=== PATIENT | male | born 1980 | race Caucasian/White ===

== ENCOUNTER 2022-07-24 16:34 | Observation (INO) | payer OTHER ==
[2022-07-24] MEDS ORDERED: DIPH,PERTUS(ACELL)TETVAC-LF 0.5 ML VIAL IM ONE (16:50)
[2022-07-24] MEDS ORDERED: MORPHINE SULFATE 4 MG/ML SYRINGE IVP STA (16:51)
[2022-07-24 17:12] LABS: Basophils # (A) 0.1 k/uL (0-0.2); Basophils % (A) 1 %; Eosinophils # (A) 0.2 k/uL (0-0.7); Eosinophils % (A) 2 %; HCT 44.7 % (39.0-53.0); HGB 14.9 gm/dL (13.0-17.5); Lymphocytes # (A) 3.4 k/uL (1.0-4.8); Lymphocytes % (A) 34 %; MCH 30.2 pg (25.0-35.0); MCHC 33.4 g/dL (31.0-37.0); MCV 90.3 fL (80.0-100.0); Mean Platelet Volume 7.9; Monocytes # (A) 0.6 k/uL (0-1.0); Monocytes % (A) 6 %; Neutrophils # (A) 5.6 k/uL (1.3-7.7); Neutrophils % (A) 55 %; Platelet Count 252 k/uL (150-450); RBC 4.95 m/uL (4.30-5.90); RDW 12.1 % (11.5-15.5); WBC 10.1 k/uL (3.8-10.6)
--- NOTE | 2022-07-24 17:20 | CT ---
EXAMINATION: CT ABDOMEN AND PELVIS WITH IV CONTRAST DATE OF EXAMINATION: 2022. COMPARISON: None available. INDICATION: Abnormal after falling from ladder. PROCEDURE: Axial CT of the abdomen and pelvis was performed with contrast and sagittal and coronal reformatted images were performed. CT dose lowering techniques were used, to include: automated expos ure control, adjustment for patient size, and/or use of iterative reconstruction. FINDINGS: LOWER CHEST : The visualized lung bases are clear. There are no pleural or pericardial effusions. ABDOMEN: Liver and Biliary system: Normal. Adrenal glands: Normal. Kidneys and ureters: Normal. Spleen: Normal. Pancreas: Normal. Gallbladder: Normal. Lymph nodes, Peritoneum and mesentery: There is no mesenteric or retroperitoneal lymphadenopathy. Gastrointestinal tract: There are no dilated loops of bowel or free intraperitoneal air. The appe ndix is normal. Aorta/IVC: No aortic aneurysm. IVC normal. Abdominal wall: Normal. PELVIS: Fluid: There is no free fluid in the pelvis. Lymph Nodes: There is no pelvic or inguinal lymphadenopathy.. Urinary bladder: Normal. BONES: There are no osseous destructive lesions.. ADDITIONAL SIGNIFICANT FINDINGS: None. IMPRESSION: No acute process within the abdomen or pelvis.
--- NOTE | 2022-07-24 17:26 | XR ---
EXAMINATION TYPE: XR pelvis AP view DATE OF EXAM: 07/24/2022 COMPARISON: NONE HISTORY: Laceration. Left side pain. Fell off a ladder. TECHNIQUE: Single view FINDINGS: Pelvic ring is intact. Proximal femurs and hip joints are intact. Sacroiliac joints are int act. There is contrast in the urinary bladder and distal right ureter. IMPRESSION: No acute abnormality of the pelvis. No fracture.
[2022-07-24 17:27] LABS: Partial Thromboplastin Time 22.5 sec (22.0-30.0); Prothrombin Time 10.6 sec (9.0-12.0)
[2022-07-24 17:31] LABS: ALT 26 U/L (4-49); AST 29 U/L (17-59); African American GFR (CKD) >90 (>60 ml/min/1.73 sqM); Albumin 4.6 g/dL (3.5-5.0); Alcohol <10 mg/dL; Alkaline Phosphatase 63 U/L (38-126); Anion Gap 11 mmol/L; Blood Urea Nitrogen 17 mg/dL (9-20); Calcium 9.1 mg/dL (8.4-10.2); Carbon Dioxide 24 mmol/L (22-30); Chloride 102 mmol/L (98-107); Glucose 159 mg/dL (74-99); Non-African American GFR(CKD) >90 (>60 ml/min/1.73 sqM); Potassium 3.7 mmol/L (3.5-5.1); Sodium 137 mmol/L (137-145); Total Bilirubin 0.6 mg/dL (0.2-1.3); Total Protein 7.2 g/dL (6.3-8.2)
--- NOTE | 2022-07-24 18:21 | ED ---
General Adult HPI - General Chief complaint: Trauma Stated complaint: Fall from Ladder, Leg Lac Time Seen by Provider: 07/24/22 16:50 Source: patient Mode of arrival: wheelchair Limitations: no limitations - History of Present Illness Initial comments: This is a 41-year-old male with no past medical history presented to the emergency department after a fall and having a fencepost impale him. The patient stated that he was on a ladder when he was holding onto a roof and the ladder slipped, him falling approximately 8 feet however landing on the top of a fence post impaling him on the buttock. The patient stated this happened 20 minutes prior to arrival. The patient did not hit his head and did not lose consciousness. The patient had significant pain to the animal bleeding noted. The patient was able to inflate into the emergency department. The patient denied any other trauma. The patient denied knowing his last tetanus booster. Severity scale (1-10): 2 - Related Data Home Medications Medication Instructions Recorded Confirmed No Known Home Medications 07/24/22 07/24/22 Allergies Allergy/AdvReac Type Severity Reaction Status Date / Time No Known Allergies Allergy Verified 07/24/22 19:17 Review of Systems ROS Statement: Those systems with pertinent positive or pertinent negative responses have been documented in the HPI. ROS Other: All systems not noted in ROS Statement are negative. Past Medical History History of Any Multi-Drug Resistant Organisms: None Reported Past Psychological History: No Psychological Hx Reported Past Alcohol Use History: None Reported Past Drug Use History: None Reported General Exam Limitations: no limitations General appearance: alert, in distress (In mild distress secondary to trauma) Head exam: Present: atraumatic, normocephalic, normal inspection Eye exam: Present: normal appearance, PERRL Pupils: Present: normal accommodation ENT exam: Present: normal exam, normal oropharynx, mucous membranes moist Neck exam: Present: normal inspection, full ROM Respiratory exam: Present: normal lung sounds bilaterally Cardiovascular Exam: Present: regular rate, normal rhythm, normal heart sounds GI/Abdominal exam: Present: soft, normal bowel sounds Rectal exam: Present: normal inspection, normal rectal tone, other (Large U- shaped, 8 cm laceration noted to the left anterior aspect of the back just lateral to the rectum and anal verge) exam: Present: normal inspection External exam: Present: normal external exam Extremities exam: Present: normal inspection, full ROM Back exam: Present: normal inspection, full ROM Neurological exam: Present: alert, oriented X3, CN II-XII intact Psychiatric exam: Present: normal affect, normal mood Skin exam: Present: warm, dry Course Vital Signs 07/24/22 07/24/22 07/24/22 16:38 17:59 18:25 Temperature 97 F L 97.7 F 97.7 F Pulse Rate 86 Pulse Rate [ 93 87 Pulse Oximetery ] Respiratory 24 14 16 Rate Blood Pressure 119/70 Blood Pressure 122/65 122/65 [Right Arm] O2 Sat by Pulse 96 94 L 98 Oximetry 07/24/22 19:00 Temperature Pulse Rate Pulse Rate [ 79 Pulse Oximetery ] Respiratory 20 Rate Blood Pressure Blood Pressure 118/61 [Right Arm] O2 Sat by Pulse 97 Oximetry EKG Findings - EKG Comments: EKG Findings:: An EKG was obtained and was interpreted by myself showing a rate of 81, CO interval of 161, QRS duration 93 and QTC of 400. This EKG showed a normal sinus rhythm with no ST segment elevation or depression noted. Procedures - Laceration Laceration #1 Consent Obtained: verbal consent Indication: laceration Site: other (Buttock) Size (cm): 8 Description: flap Depth: involves muscle layer Sedation/Analgesia: none Anesthetic Used: lidocaine 1% Anesthesia Technique: local infiltration Amount (mls): 8 Pre-repair: wound explored, irrigated extensively, deep structures intact Type of Sutures: nylon Size of Sutures: 3-0 Number of Sutures: 7 Technique: simple, interrupted Complications: other Patient Tolerated Procedure: well Laceration #2 Consent Obtained: verbal consent Indication: laceration Site: other (Buttock) Size (cm): 3 Description: linear Depth: simple, single layer Sedation/Analgesia: none Anesthetic Used: lidocaine 1% Anesthesia Technique: local infiltration Amount (mls): 2 Pre-repair: wound explored, irrigated extensively, deep structures intact Type of Sutures: nylon Size of Sutures: 3-0 Number of Sutures: 3 Technique: simple, interrupted Patient Tolerated Procedure: well Medical Decision Making - Medical Decision Making Was pt. sent in by a medical professional or institution (, PA, NURSE RECEPTIONIST, urgent care, hospital, or skilled nursing...) When possible be specific @ -No Did you speak to anyone other than the patient for history (EMS, parent, family, police, friend...)? What history was obtained from this source @ -No Did you review nursing and triage notes (agree or disagree)? Why? @ -I reviewed and agree with nursing and triage notes Were old charts reviewed (outside hosp., previous admission, EMS record, old EKG, old radiological studies, urgent care reports/EKG's, skilled nursing records)? Report findings @ -No old charts were reviewed Differential Diagnosis (chest pain, altered mental status, abdominal pain women, abdominal pain men, vaginal bleeding, weakness, fever, dyspnea, syncope, headache, dizziness, GI bleed, back pain, seizure, CVA, palpatations, mental health)? @ -Rectal injury, perforation, laceration EKG interpreted by me (3pts min.). @ -As above X-rays interpreted by me (1pt min.). @ -Pelvic x-ray was obtained and was interpreted by myself showing no acute process. CT interpreted by me (1pt min.). @ -CT abdomen and pelvis was obtained and was interpreted by myself showing no acute process. U/S interpreted by me (1pt. min.). @ -None done What testing was considered but not performed or refused? (CT, X-rays, U/S, labs)? Why? @ -None What meds were considered but not given or refused? Why? @ -None Did you discuss the management of the patient with other professionals (pr ofessionals i.e. , PA, NURSE RECEPTIONIST, lab, RT, psych nurse, social sciences professor, headhunter, teacher, life science technical officer, showcase trimmer)? Give summary @ -Yes, trauma surgeon retail commission sales associate, Dr De Luna multiple times, as well as urologist, Dr. Llanes Was smoking cessation discussed for >3mins.? @ -No Was critical care preformed (if so, how long)? @ -Yes, see above Were there social determinants of health that impacted care today? How? (Homelessness, low income, unemployed, alcoholism, drug addiction, transportation, low edu. Level, literacy, decrease access to med. care, group home, rehab)? @ -No Was there de-escalation of care discussed even if they declined (Discuss DNR or withdrawal of care, Hospice)? DNR status @ -No What co-morbidities impacted this encounter? (DM, HTN, Smoking, COPD, CAD, Cancer, CVA, ARF, Chemo, Hep., AIDS, mental health diagnosis, sleep apnea, morbid obesity)? @ -None Was patient admitted / discharged? Hospital course, mention meds given and route, prescriptions, significant lab abnormalities, going to OR and other pertinent info. @ -The patient was seen and evaluated in emergency department. Physical exam, the patient was resting in bed in mild distress secondary to the injury. Vital signs were stable. Laboratory workup as well as CT scans were obtained and were within normal limits. The patient did have tracking towards the scrotum but did have blood in the urine. Because of this, the trauma surgeon was contacted and he did want urology evaluation. The urologist, Dr. Llanes was contacted and recommended a cystourethrogram. Because the patient did require this scan in the setting of a radiologist present, the patient needed to be placed observation. The trauma surgeon on-call did accept the patient for observation and the patient himself was told this plan and was agreeable. The patient received his tetanus booster as well as pain medications and antibiotics. The patient was placed in observation in stable condition to be seen and evaluated by urology and have a cystourethrogram performed. Undiagnosed new problem with uncertain prognosis? @ -No Drug Therapy requiring intensive monitoring for toxicity (Heparin, Nitro, Insulin, Cardizem)? @ -No Were any procedures done? @ -Yes, see above Diagnosis/symptom? @ -Penetrating left buttock wound, rule out urethral injury Acute, or Chronic, or Acute on Chronic? @ -Acute Uncomplicated (without systemic symptoms) or Complicated (systemic symptoms)? @ -Complicated Side effects of treatment? @ -No Exacerbation, Progression, or Severe Exacerbation? @ -No Poses a threat to life or bodily function? How? (Chest pain, USA, NC, pneumonia, PE, COPD, DKA, ARF, appy, cholecystitis, CVA, Diverticulitis, Homicidal, Suicidal, threat to staff... and all critical care pts) @ -Yes, possible urethral injury can lead to permanent damage and organ dysfunction. - Lab Data Result diagrams: 07/24/22 16:53 07/24/22 16:53 Lab Results 07/24/22 07/24/22 07/24/22 Range/Units 16:53 16:53 16:53 WBC 10.1 (3.8-10.6) k/uL RBC 4.95 (4.30-5.90) m/uL Hgb 14.9 (13.0-17.5) gm/dL Hct 44.7 (39.0-53.0) % MCV 90.3 (80.0-100.0) fL MCH 30.2 (25.0-35.0) pg MCHC 33.4 (31.0-37.0) g/dL RDW 12.1 (11.5-15.5) % Plt Count 252 (150-450) k/uL MPV 7.9 Neutrophils % 55 % Lymphocytes % 34 % Monocytes % 6 % Eosinophils % 2 % Basophils % 1 % Neutrophils # 5.6 (1.3-7.7) k/uL Lymphocytes # 3.4 (1.0-4.8) k/uL Monocytes # 0.6 (0-1.0) k/uL Eosinophils # 0.2 (0-0.7) k/uL Basophils # 0.1 (0-0.2) k/uL PT 10.6 (9.0-12.0) sec INR 1.0 (<1.2) APTT 22.5 (22.0-30.0) sec Sodium 137 (137-145) mmol/L Potassium 3.7 (3.5-5.1) mmol/L Chloride 102 (98-107) mmol/L Carbon Dioxide 24 (22-30) mmol/L Anion Gap 11 mmol/L BUN 17 (9-20) mg/dL Creatinine 0.89 (0.66-1.25) mg/dL Est GFR (CKD-EPI)AfAm >90 (>60 ml/min/1.73 sqM) Est GFR (CKD-EPI)NonAf >90 (>60 ml/min/1.73 sqM) Glucose 159 H (74-99) mg/dL Calcium 9.1 (8.4-10.2) mg/dL Total Bilirubin 0.6 (0.2-1.3) mg/dL AST 29 (17-59) U/L ALT 26 (4-49) U/L Alkaline Phosphatase 63 (38-126) U/L Troponin I (0.000-0.034) ng/mL Total Protein 7.2 (6.3-8.2) g/dL Albumin 4.6 (3.5-5.0) g/dL Urine Color Urine Appearance (Clear) Urine pH (5.0-8.0) Ur Specific [place] (1.001-1.035) Urine Protein (Negative) Urine Glucose (UA) (Negative) Urine Ketones (Negative) Urine Blood (Negative) Urine Nitrite (Negative) Urine Bilirubin (Negative) Urine Urobilinogen (<2.0) mg/dL Ur Leukocyte Esterase (Negative) Urine RBC (0-5) /hpf Urine WBC (0-5) /hpf Urine Mucus (None) /hpf Urine Opiates Screen (NotDetected) Ur Oxycodone Screen (NotDetected) Urine Methadone Screen (NotDetected) Ur Propoxyphene Screen (NotDetected) Ur Barbiturates Screen (NotDetected) U Tricyclic Antidepress (NotDetected) Ur Phencyclidine Scrn (NotDetected) Ur Amphetamines Screen (NotDetected) U Methamphetamines Scrn (NotDetected) U Benzodiazepines Scrn (NotDetected) Urine Cocaine Screen (NotDetected) U Marijuana (THC) Screen (NotDetected) Serum Alcohol <10 mg/dL Blood Type Blood Type Confirm Blood Type Recheck Bld Type Recheck Status Antibody Screen Spec Expiration Date 07/24/22 07/24/22 07/24/22 Range/Units 16:53 16:53 17:07 WBC (3.8-10.6) k/uL RBC (4.30-5.90) m/uL Hgb (13.0-17.5) gm/dL Hct (39.0-53.0) % MCV (80.0-100.0) fL MCH (25.0-35.0) pg MCHC (31.0-37.0) g/dL RDW (11.5-15.5) % Plt Count (150-450) k/uL MPV Neutrophils % % Lymphocytes % % Monocytes % % Eosinophils % % Basophils % % Neutrophils # (1.3-7.7) k/uL Lymphocytes # (1.0-4.8) k/uL Monocytes # (0-1.0) k/uL Eosinophils # (0-0.7) k/uL Basophils # (0-0.2) k/uL PT (9.0-12.0) sec INR (<1.2) APTT (22.0-30.0) sec Sodium (137-145) mmol/L Potassium (3.5-5.1) mmol/L Chloride (98-107) mmol/L Carbon Dioxide (22-30) mmol/L Anion Gap mmol/L BUN (9-20) mg/dL Creatinine (0.66-1.25) mg/dL Est GFR (CKD-EPI)AfAm (>60 ml/min/1.73 sqM) Est GFR (CKD-EPI)NonAf (>60 ml/min/1.73 sqM) Glucose (74-99) mg/dL Calcium (8.4-10.2) mg/dL Total Bilirubin (0.2-1.3) mg/dL AST (17-59) U/L ALT (4-49) U/L Alkaline Phosphatase (38-126) U/L Troponin I <0.012 (0.000-0.034) ng/mL Total Protein (6.3-8.2) g/dL Albumin (3.5-5.0) g/dL Urine Color Urine Appearance (Clear) Urine pH (5.0-8.0) Ur Specific [place] (1.001-1.035) Urine Protein (Negative) Urine Glucose (UA) (Negative) Urine Ketones (Negative) Urine Blood (Negative) Urine Nitrite (Negative) Urine Bilirubin (Negative) Urine Urobilinogen (<2.0) mg/dL Ur Leukocyte Esterase (Negative) Urine RBC (0-5) /hpf Urine WBC (0-5) /hpf Urine Mucus (None) /hpf Urine Opiates Screen (NotDetected) Ur Oxycodone Screen (NotDetected) Urine Methadone Screen (NotDetected) Ur Propoxyphene Screen (NotDetected) Ur Barbiturates Screen (NotDetected) U Tricyclic Antidepress (NotDetected) Ur Phencyclidine Scrn (NotDetected) Ur Amphetamines Screen (NotDetected) U Methamphetamines Scrn (NotDetected) U Benzodiazepines Scrn (NotDetected) Urine Cocaine Screen (NotDetected) U Marijuana (THC) Screen (NotDetected) Serum Alcohol mg/dL Blood Type A Negative Blood Type Confirm A Negative Blood Type Recheck No Previous Record Bld Type Recheck Status CABO Indicated Antibody Screen NEGATIVE Spec Expiration Date 07/27/2022 - 235207/24/22 Range/Units 18:23 WBC (3.8-10.6) k/uL RBC (4.30-5.90) m/uL Hgb (13.0-17.5) gm/dL Hct (39.0-53.0) % MCV (80.0-100.0) fL MCH (25.0-35.0) pg MCHC (31.0-37.0) g/dL RDW (11.5-15.5) % Plt Count (150-450) k/uL MPV Neutrophils % % Lymphocytes % % Monocytes % % Eosinophils % % Basophils % % Neutrophils # (1.3-7.7) k/uL Lymphocytes # (1.0-4.8) k/uL Monocytes # (0-1.0) k/uL Eosinophils # (0-0.7) k/uL Basophils # (0-0.2) k/uL PT (9.0-12.0) sec INR (<1.2) APTT (22.0-30.0) sec Sodium (137-145) mmol/L Potassium (3.5-5.1) mmol/L Chloride (98-107) mmol/L Carbon Dioxide (22-30) mmol/L Anion Gap mmol/L BUN (9-20) mg/dL Creatinine (0.66-1.25) mg/dL Est GFR (CKD-EPI)AfAm (>60 ml/min/1.73 sqM) Est GFR (CKD-EPI)NonAf (>60 ml/min/1.73 sqM) Glucose (74-99) mg/dL Calcium (8.4-10.2) mg/dL Total Bilirubin (0.2-1.3) mg/dL AST (17-59) U/L ALT (4-49) U/L Alkaline Phosphatase (38-126) U/L Troponin I (0.000-0.034) ng/mL Total Protein (6.3-8.2) g/dL Albumin (3.5-5.0) g/dL Urine Color Yellow Urine Appearance Clear (Clear) Urine pH 6.0 (5.0-8.0) Ur Specific [place] >1.050 H (1.001-1.035) Urine Protein Trace H (Negative) Urine Glucose (UA) Negative (Negative) Urine Ketones Negative (Negative) Urine Blood Small H (Negative) Urine Nitrite Negative (Negative) Urine Bilirubin Negative (Negative) Urine Urobilinogen <2.0 (<2.0) mg/dL Ur Leukocyte Esterase Negative (Negative) Urine RBC 10 H (0-5) /hpf Urine WBC 1 (0-5) /hpf Urine Mucus Few H (None) /hpf Urine Opiates Screen Detected H (NotDetected) Ur Oxycodone Screen Not Detected (NotDetected) Urine Methadone Screen Not Detected (NotDetected) Ur Propoxyphene Screen Not Detected (NotDetected) Ur Barbiturates Screen Not Detected (NotDetected) U Tricyclic Antidepress Not Detected (NotDetected) Ur Phencyclidine Scrn Not Detected (NotDetected) Ur Amphetamines Screen Detected H (NotDetected) U Methamphetamines Scrn Not Detected (NotDetected) U Benzodiazepines Scrn Not Detected (NotDetected) Urine Cocaine Screen Not Detected (NotDetected) U Marijuana (THC) Screen Detected H (NotDetected) Serum Alcohol mg/dL Blood Type Blood Type Confirm Blood Type Recheck Bld Type Recheck Status Antibody Screen Spec Expiration Date Critical Care Time Critical Care Time: Yes Total Critical Care Time: 41 Disposition Clinical Impression: Penetrating wound of soft tissue, Hematuria, Laceration Disposition: ADMITTED IP TO THIS [facility] Condition: Stable Is patient prescribed a controlled substance at d/c from ED?: No Referrals: Merlin Murillo MD [Primary Care Provider] - 1-2 days Time of Disposition: 19:00 Decision to Admit Reason: Admit from EC Decision Date: 07/24/22 Decision Time: 19:00
[2022-07-24 18:35] LABS: Appearance,Urine Clear (Clear); Bilirubin,Urine Negative (Negative); Blood,Urine Small (Negative); Color,Urine Yellow; Glucose,Urine (UA) Negative (Negative); Ketones,Urine Negative (Negative); Leukocyte Esterase,Urine Negative (Negative); Mucus,Urine Few /hpf; Nitrite,Urine Negative (Negative); Protein,Urine Trace (Negative); RBC,Urine 10 /hpf (0-5); Urobilinogen,Urine <2.0 mg/dL (<2.0); WBC,Urine 1 /hpf (0-5)
[2022-07-24 18:36] LABS: Specific Gravity,Urine >1.050 (1.001-1.035)
[2022-07-24 19:01] LABS: Amphetamine Screen,Urine Detected (NotDetected); Barbiturate Screen,Urine Not Detected (NotDetected); Benzodiazepines Screen,Urine Not Detected (NotDetected); Cocaine Screen,Urine Not Detected (NotDetected); Methadone Screen, Urine Not Detected (NotDetected); Opiate Screen,Urine Detected (NotDetected); Oxycodone Screen, Urine Not Detected (NotDetected); Phencyclidine Screen,Urine Not Detected (NotDetected); Tricyclic Antidepressant,Urine Not Detected (NotDetected); Urn Cannabinoid Scrn Detected (NotDetected)
[2022-07-24] MEDS ORDERED: NALOXONE 0.4 MG/ML 1 ML VIAL IV PRN (19:02)
[2022-07-24] MEDS: MORPHINE SULFATE 4 MG/ML SYRINGE IV PRN ×2 (19:18→23:21)
[2022-07-24] MEDS ORDERED: AMPICILLIN-SULBACTAM 3 GM in SODIUM CHLORIDE 0.9% 100 ML IVPB STA (20:07)
[2022-07-24] MEDS ORDERED: ALPRAZolam 0.25 MG TAB PO PRN (21:32)
[2022-07-25] MEDS: MORPHINE SULFATE 4 MG/ML SYRINGE IV PRN (08:01)
--- NOTE | 2022-07-25 08:45 | P.GSCN ---
History of Present Illness Consult date: 07/25/22 History of present illness: The patient is 41. Yesterday he fell off a roof and was impaled in the perineum on the left side from a fence post. He was brought to the emergency room and evaluated. Her asked to see because of some hematuria. When they contacted me last night I recommended a cystourethrogram due to the location of injury. One was not done. A CT scan was performed with contrast and there is no urologic injury noted. The patient has voided without difficulty or hematuria since the incident 18 hours ago. The patient has no previous urologic issues. Review of Systems All systems: negative - Constitutional Denies fever, Denies weight loss - EENT Eyes: denies blurred vision Ears, nose, mouth and throat: Denies dysphagia - Cardiovascular Denies chest pain, Denies shortness of breath - Respiratory Denies cough, Denies 7 - Gastrointestinal Reports as per HPI - Genitourinary Denies dysuria, Denies hematuria - Integumentary Denies rash, Denies unusual bruising - Neurological Denies headaches, Denies syncope - Hematologic/Lymphatic Denies easy bleeding, Denies easy bruising Past Medical History History of Any Multi-Drug Resistant Organisms: None Reported Past Psychological History: No Psychological Hx Reported Smoking Status: Former smoker Past Alcohol Use History: None Reported Past Drug Use History: None Reported Medications and Allergies Home Medications Medication Instructions Recorded Confirmed Type No Known Home Medications 07/24/22 07/24/22 History Allergies Allergy/AdvReac Type Severity Reaction Status Date / Time No Known Allergies Allergy Verified 07/24/22 19:17 Surgical - Exam Vital Signs Temp Pulse Resp BP Pulse Ox 97 F L 86 24 119/70 96 07/24/22 16:38 07/24/22 16:38 07/24/22 16:38 07/24/22 16:38 07/24/22 16:38 - General well developed, well nourished, no distress - Eyes normal ocular movement, no icteric - ENT no hearing loss, no congestion - Neck no masses, trachea midline - Respiratory normal respiratory effort, clear to auscultation - Abdomen Abdomen: soft, non tender, no guarding, no rigid, no rebound - Genitourinary The penis is circumcised and normal. The testes are unremarkable. The urethra is palpably unremarkable. There is a laceration in the left perineum towards the buttocks that is somewhat swollen and tender. No significant ecchymosis is noted. There is no blood at the urethral meatus. - Integumentary no rash, no abnormal pigmentation - Neurologic no disoriented, no combative - Psychiatric oriented to time, oriented to person, oriented to place, speech is normal, memory intact Results - Labs 07/24/22 16:53 07/24/22 16:53 Abnormal Lab Results - Last 24 Hours (Table) 07/24/22 07/24/22 Range/Units 16:53 18:23 Glucose 159 H (74-99) mg/dL Ur Specific [place] >1.050 H (1.001-1.035) Urine Protein Trace H (Negative) Urine Blood Small H (Negative) Urine RBC 10 H (0-5) /hpf Urine Mucus Few H (None) /hpf Urine Opiates Screen Detected H (NotDetected) Ur Amphetamines Screen Detected H (NotDetected) U Marijuana (THC) Screen Detected H (NotDetected) Diabetes panel 07/24/22 Range/Units 16:53 Sodium 137 (137-145) mmol/L Potassium 3.7 (3.5-5.1) mmol/L Chloride 102 (98-107) mmol/L Carbon Dioxide 24 (22-30) mmol/L BUN 17 (9-20) mg/dL Creatinine 0.89 (0.66-1.25) mg/dL Glucose 159 H (74-99) mg/dL Calcium 9.1 (8.4-10.2) mg/dL AST 29 (17-59) U/L ALT 26 (4-49) U/L Alkaline Phosphatase 63 (38-126) U/L Total Protein 7.2 (6.3-8.2) g/dL Albumin 4.6 (3.5-5.0) g/dL Calcium panel 07/24/22 Range/Units 16:53 Calcium 9.1 (8.4-10.2) mg/dL Albumin 4.6 (3.5-5.0) g/dL Pituitary panel 07/24/22 Range/Units 16:53 Sodium 137 (137-145) mmol/L Potassium 3.7 (3.5-5.1) mmol/L Chloride 102 (98-107) mmol/L Carbon Dioxide 24 (22-30) mmol/L BUN 17 (9-20) mg/dL Creatinine 0.89 (0.66-1.25) mg/dL Glucose 159 H (74-99) mg/dL Calcium 9.1 (8.4-10.2) mg/dL Adrenal panel 07/24/22 Range/Units 16:53 Sodium 137 (137-145) mmol/L Potassium 3.7 (3.5-5.1) mmol/L Chloride 102 (98-107) mmol/L Carbon Dioxide 24 (22-30) mmol/L BUN 17 (9-20) mg/dL Creatinine 0.89 (0.66-1.25) mg/dL Glucose 159 H (74-99) mg/dL Calcium 9.1 (8.4-10.2) mg/dL Total Bilirubin 0.6 (0.2-1.3) mg/dL AST 29 (17-59) U/L ALT 26 (4-49) U/L Alkaline Phosphatase 63 (38-126) U/L Total Protein 7.2 (6.3-8.2) g/dL Albumin 4.6 (3.5-5.0) g/dL - Imaging CT scan - abdomen: report reviewed, image reviewed CT scan - pelvis: report reviewed, image reviewed Assessment and Plan Assessment: Impression: Perineal injury. Microscopic hematuria minimal probably secondary to fall. No obvious urologic injury. Recommendations: No cystourethrogram was done but the CT scan with contrast was normal. He has voided for 18 hours without blood. I do not think further urologic intervention is required. This has been discussed with the patient.
[2022-07-25 09:38] VITALS: RESP 16
[2022-07-25] MEDS ORDERED: HYDROcodone/APAP 5-325MG 1 EACH TAB PO PRN (10:27)
[2022-07-25 10:57] LABS: Basophils # (A) 0.03 X 10*3/uL (0.00-0.10); Basophils % (A) 0.3 %; Eosinophils # (A) 0.12 X 10*3/uL (0.04-0.35); Eosinophils % (A) 1.1 %; HCT 44.5 % (39.6-50.0); HGB 14.6 g/dL (13.0-17.0); Immature Grans, Automated 0.3 %; Lymphocytes % (A) 16.1 %; MCH 29.4 pg (27.0-32.0); MCHC 32.8 g/dL (32.0-37.0); MCV 89.7 fL (80.0-97.0); Mean Platelet Volume 10.8 fL (9.5-12.2); Monocytes # (A) 1.01 X 10*3/uL (0.20-1.00); Monocytes % (A) 9.6 %; NRBC Per 100 WBC 0 /100 WBCS (0.0-0.0); Neutrophils # (A) 7.65 X 10*3/uL (1.80-7.70); Neutrophils % (A) 72.6 %; Platelet Count 219 X 10*3/uL (140-440); RBC 4.96 X 10*6/uL (4.40-5.60); RDW 12.5 % (11.5-14.5); WBC 10.54 X 10*3/uL (4.50-10.00)
[2022-07-25 11:08] LABS: African American GFR (CKD) 135.9 (60.0-200.0); Anion Gap 13.4 mmol/L (10.00-18.00); Blood Urea Nitrogen 10.5 mg/dL (9.0-27.0); Calcium 8.9 mg/dL (8.7-10.3); Carbon Dioxide 16.6 mmol/L (20.0-27.5); Non-African American GFR(CKD) 117.2 (60.0-200.0)
--- NOTE | 2022-07-25 12:01 | P.GSHP ---
History of Present Illness H&P Date: 07/25/22 CHIEF COMPLAINT: Fall HISTORY OF PRESENT ILLNESS: This is a 41-year-old male who presented to the hospital after a fall from a 6 foot ladder landing on a metal stents post. The fence post. Old the perineum on the left side. Patient did require sutures in the ER. There had been some hematuria reported by nursing staff. This has apparently resolved. Patient evaluated by urology. Per urology no evidence of any urological injury noted on CT. Patient has not noted any hematuria. He reports having flatus. Denies any nausea or vomiting. He denies any abdominal pain. His pain is tolerable. He had a computed tomography scan abdomen and pelvis with no acute process. Patient did receive a tetanus shot in the ER. He denies any fever, chills or sweats. Patient denies any loss of consciousness or hitting his head. PAST MEDICAL HISTORY: See below PAST SURGICAL HISTORY: See below MEDICATIONS: See below ALLERGIES: See below SOCIAL HISTORY: No illicit drug use. REVIEW OF SYSTEMS: CONSTITUTIONAL: Denies fever or chills. HEENT: Denies blurred vision, vision changes, or eye pain. Denies hemoptysis CARDIOVASCULAR: Denies chest pain or pressure. RESPIRATORY: No shortness of breath. GASTROINTESTINAL: See HPI for pertinent findings HEMATOLOGIC: Denies bleeding disorders. GENITOURINARY: Denies any blood in urine or increased urinary frequency. SKIN: Denies pruitis. Denies rash. PHYSICAL EXAM: VITAL SIGNS: Reviewed GENERAL: Well-developed in no acute distress. HEENT: No sclera icterus. Extraocular movements grossly intact. Moist buccal mucosa. Head is atraumatic, normocephalic. No nasal drainage. ABDOMEN: Soft. Nondistended. Nontender NEUROLOGIC: Alert and oriented. Cranial nerves II through XII grossly intact. : Left side perineal area is tender and swollen with 2 lacerations that have been sutured. LABORATORY DATA: WBC 10.5 Hgb 14.6 plt 219 Na 137 k 4.0 cr 0.7 LFTs normal Urinalysis small amount of blood Urine drug screen positive for opiates and amphetamines and marijuana IMAGING: Computed tomography scan abdomen and pelvis no acute process within the abdomen or pelvis Abdominal x-ray no acute abnormality in the pelvis. No fracture. ASSESSMENT: 1. Fall with trauma to left perineal area 2. Penetrating injury to left perineal area by fence post. Status post sutures in ER 3. Hematuria noted in the ER. Patient evaluated by urology. No obvious urologic injury and they cancelled the cystourethogram PLAN: -Patient scheduled for flex sigmoidoscopy today with Dr. De Luna -Keep patient nothing by mouth -Meridian added for pain control -Continue antibiotics -Continue supportive care Physician Psychopaedic Nurse note has been reviewed by physician. Signing provider agrees with the documented findings, assessment, and plan of care. As above. I have personally seen and examined the patient, reviewed the FINANCIAL BUSINESS ANALYST /PAs history, exam and MDM and agree with the assessment and plan as written. Based on total visit time, I have performed more than 50% of the visit. As above: Patient with impalement injury yesterday evening. Spoke with ER at length last night. Likelihood of rectal injury very low however since the patient stayed overnight for urologic assessment Will proceed with flexible sigmoidoscopy today prior to discharge. Past Medical History History of Any Multi-Drug Resistant Organisms: None Reported Past Psychological History: No Psychological Hx Reported Smoking Status: Former smoker Past Alcohol Use History: None Reported Past Drug Use History: None Reported Medications and Allergies Home Medications Medication Instructions Recorded Confirmed Type No Known Home Medications 07/24/22 07/24/22 History Allergies Allergy/AdvReac Type Severity Reaction Status Date / Time No Known Allergies Allergy Verified 07/24/22 19:17 Surgical - Exam Vital Signs Temp Pulse Resp BP Pulse Ox 97 F L 86 24 119/70 96 07/24/22 16:38 07/24/22 16:38 07/24/22 16:38 07/24/22 16:38 07/24/22 16:38 Results - Labs 07/25/22 05:12 07/25/22 05:12 Abnormal Lab Results - Last 24 Hours (Table) 07/24/22 07/24/22 Range/Units 16:53 18:23 Glucose 159 H (74-99) mg/dL Ur Specific [place] >1.050 H (1.001-1.035) Urine Protein Trace H (Negative) Urine Blood Small H (Negative) Urine RBC 10 H (0-5) /hpf Urine Mucus Few H (None) /hpf Urine Opiates Screen Detected H (NotDetected) Ur Amphetamines Screen Detected H (NotDetected) U Marijuana (THC) Screen Detected H (NotDetected) Diabetes panel 07/24/22 Range/Units 16:53 Sodium 137 (137-145) mmol/L Potassium 3.7 (3.5-5.1) mmol/L Chloride 102 (98-107) mmol/L Carbon Dioxide 24 (22-30) mmol/L BUN 17 (9-20) mg/dL Creatinine 0.89 (0.66-1.25) mg/dL Glucose 159 H (74-99) mg/dL Calcium 9.1 (8.4-10.2) mg/dL AST 29 (17-59) U/L ALT 26 (4-49) U/L Alkaline Phosphatase 63 (38-126) U/L Total Protein 7.2 (6.3-8.2) g/dL Albumin 4.6 (3.5-5.0) g/dL Calcium panel 07/24/22 Range/Units 16:53 Calcium 9.1 (8.4-10.2) mg/dL Albumin 4.6 (3.5-5.0) g/dL Pituitary panel 07/24/22 Range/Units 16:53 Sodium 137 (137-145) mmol/L Potassium 3.7 (3.5-5.1) mmol/L Chloride 102 (98-107) mmol/L Carbon Dioxide 24 (22-30) mmol/L BUN 17 (9-20) mg/dL Creatinine 0.89 (0.66-1.25) mg/dL Glucose 159 H (74-99) mg/dL Calcium 9.1 (8.4-10.2) mg/dL Adrenal panel 07/24/22 Range/Units 16:53 Sodium 137 (137-145) mmol/L Potassium 3.7 (3.5-5.1) mmol/L Chloride 102 (98-107) mmol/L Carbon Dioxide 24 (22-30) mmol/L BUN 17 (9-20) mg/dL Creatinine 0.89 (0.66-1.25) mg/dL Glucose 159 H (74-99) mg/dL Calcium 9.1 (8.4-10.2) mg/dL Total Bilirubin 0.6 (0.2-1.3) mg/dL AST 29 (17-59) U/L ALT 26 (4-49) U/L Alkaline Phosphatase 63 (38-126) U/L Total Protein 7.2 (6.3-8.2) g/dL Albumin 4.6 (3.5-5.0) g/dL
[2022-07-25] MEDS ORDERED: PROPOFOL 10 MG/ML 20 ML VIAL IV ONE (13:01)
[2022-07-25] MEDS ORDERED: LACTATED RINGERS 1,000 ML IV ONE (13:04)
--- NOTE | 2022-07-25 13:16 | P.PCN ---
Date of Procedure: 07/25/22 Procedure(s) Performed: PREOPERATIVE DIAGNOSIS: Perineal trauma POSTOPERATIVE DIAGNOSIS: Same, no evidence of rectal wall injury PROCEDURE: Flexible sigmoidoscopy ANESTHESIA: MAC SURGEON: Connor De Luna M.D. SPECIMENS: None ENDOSCOPIC PROCEDURE: The patient was placed on the endoscopy table in the left decubitus position. The Olympus flexible sigmoidoscope was inserted into the anus. The patient had some solid stool in the rectum which was manually evacuated. Once the stool was removed I was able to better visualize the distal 10 cm of the rectal mucosa nicely. There was no evidence of injury or submucosal hematoma formation. The scope was withdrawn. The patient's injury was to the left anterior lateral aspect of the perianal region. There were 2 lacerations that were in parallel with one another tangential to the anus. Both of these were closed nicely with nylon sutures. Small amount of serosanguineous drainage was present. No erythema, mild induration, no fluctuance. There was no bruising or swelling of the face of the scrotum and anterior perineum. The area was cleaned and sterile dressings applied. The patient was taken to the recovery room in stable condition per anesthesia guidelines.
[2022-07-25 14:41] VITALS: BP 93/57; PULSE 88; TEMP 97.9
--- NOTE | 2022-07-25 15:02 | P.DS ---
Providers Date of admission: 07/24/22 19:02 Expected date of discharge: 07/25/22 Attending physician: Connor De Luna Consults: 07/24/22 19:02 Consult Physician Routine Consulting Provider: Jamin Llanes Consult Reason/Comments: Trauma, penetrating injury, r/o urethral injury Do you want consulting provider notified?: Already Contacted Primary care physician: Chase Murillo [facility] Course: Discharge diagnosis 1. Fall with trauma to left perineal area 2. Penetrating injury to left perineal area by fence post. Status post sutures in ER 3. Hematuria noted in the ER. Patient evaluated by urology. No obvious urologic injury and they cancelled the cystourethogram Hospital course This is a 41-year-old male who presented to the hospital after a fall from a 6 foot ladder landing on a metal fence post. He injured the left side of the perineum. He did require sutures in the ER. He has been evaluated by urology regarding hematuria that was noted in ER. This has now resolved. And they urology reported no urological injury noted on CT and no further investigation or studies need to be completed. Patient was started on antibiotics. He had as flex sigmoidoscopy that showed no evidence of any rectal injury. Patient's pain is controlled. He is tolerating diet. He is afebrile. He is stable for discharge. Please refer to chart for any further details. Physician Braille Operator note has been reviewed by physician. Signing provider agrees with the documented findings, assessment, and plan of care. Patient Condition at Discharge: Stable Plan - Discharge Summary New Discharge Prescriptions: New HYDROcodone/APAP 5-325MG [Bessie 5-325] 1 tab PO Q6HR PRN 3 Days #12 tab PRN Reason: Pain Amoxic-Pot Clav 875-125Mg [Augmentin 875-125] 1 tab PO Q12HR 7 Days #14 tab Discharge Medication List Amoxic-Pot Clav 875-125Mg [Augmentin 875-125] 1 tab PO Q12HR 7 Days #14 tab 07/25/22 [Rx] HYDROcodone/APAP 5-325MG [Bessie 5-325] 1 tab PO Q6HR PRN 3 Days #12 tab 07/25/22 [Rx] Follow up Appointment(s)/Referral(s): Connor De Luna MD [Medical Doctor] - 2 Weeks Merlin Murillo MD [Primary Care Provider] - 1 Week Discharge Disposition: HOME SELF-CARE
[2022-07-25] MEDS ORDERED: AMPICILLIN-SULBACTAM 3 GM in SODIUM CHLORIDE 0.9% 100 ML IVPB SCH (16:00)
== END 2022-07-25 17:27 | disposition home or self-care (01) ==
LOC: EC 16:34 → 6NMEDSUR 19:02
PROVIDERS: ADMIT Surgery; ATTEND Surgery
DX: S31.821A Laceration without foreign body of left buttock, initial encounter (principal); W11.XXXA Fall on and from ladder, initial encounter; R31.9 Hematuria, unspecified; Z23 Encounter for immunization; Z87.891 Personal history of nicotine dependence
CPT/HCPCS: 12034; 12002; 96376 ×3; 96365; 96375; 99291; 36415; 94760; 93005; 86900; 86901; 80053; 80048; 84484; 85025 ×2; 85610; 85730; 86850; 81001; 80306; 80320; 72170; 74177; 90715; 45330; G0378 ×2; J2270 ×2; J0295 ×2; J2704; Q9967

== ENCOUNTER 2022-10-16 14:14 | Emergency (ER) | payer OTHER ==
[2022-10-16] MEDS ORDERED: LIDOCAINE 1% INJ 10MG/ML (30 ML VIAL-PF) SQ ONE (15:29)
--- NOTE | 2022-10-16 15:30 | XR ---
EXAMINATION TYPE: XR forearm LT DATE OF EXAM: 10/16/2022 3:21 PM INDICATION: Patient age:Male; 41 years old; Reason for study: laceration r/o FB; COMPARISON: None TECHNIQUE: The left forearm was examined in AP and lateral projections. FINDINGS: Laceration of the forearm with few scattered high density irregular shaped foci seen in the laceration bed suspicious for foreign bodies. Most of these are on the more distal aspect of the lac eration bed. No evidence of fracture. IMPRESSION: Left distal volar forearm laceration with suspected irregular shaped foreign bodies along the distal aspect of the laceration bed. No evidence of fracture.
[2022-10-16] MEDS ORDERED: KETOROLAC 15 MG/ML 1 ML VIAL IM STA (15:50)
--- NOTE | 2022-10-16 16:35 | ED ---
General Adult HPI - General Chief complaint: Wound/Laceration Stated complaint: cut open arm Time Seen by Provider: 10/16/22 15:29 Source: patient, RN notes reviewed Mode of arrival: ambulatory Limitations: no limitations - History of Present Illness Initial comments: 41-year-old male with no significant past medical history presents to the emergency department with a chief complaint of left forearm laceration. Patient reports that he is at work and had a metal saw which he lost control and hit his left forearm. She is complaining of increased bleeding at the site. He denies any numbness or tingling or weakness. he is up-to-date on his tetanus vaccination. - Related Data Previous Rx's Medication Instructions Recorded Amoxic-Pot Clav 875-125Mg 1 tab PO Q12HR 7 Days #14 tab 07/25/22 [Augmentin 875-125] HYDROcodone/APAP 5-325MG [M[place]ulley 1 tab PO Q6HR PRN 3 Days #12 tab 07/25/22 5-325] HYDROcodone/APAP 10-325MG [Mccaulley 1 tab PO Q6H PRN #15 tab 10/16/22 10-325] Allergies Allergy/AdvReac Type Severity Reaction Status Date / Time No Known Allergies Allergy Verified 10/16/22 14:43 Review of Systems ROS Statement: Those systems with pertinent positive or pertinent negative responses have been documented in the HPI. ROS Other: All systems not noted in ROS Statement are negative. Past Medical History Past Medical History: No Reported History History of Any Multi-Drug Resistant Organisms: None Reported Past Surgical History: No Surgical Hx Reported Past Psychological History: No Psychological Hx Reported Smoking Status: Former smoker Past Alcohol Use History: None Reported Past Drug Use History: None Reported General Exam - General Exam Comments Initial Comments: General: Alert, in no acute distress Head: atraumatic normocephalic. Eyes PERRL, EOMI intact, mucous membranes moist Respiratory: Lungs clear to auscultation bilaterally Cardiovascular: Heart rate regular rate and rhythm Abdominal: Soft without guarding or rebound Extremities: Normal inspection with full range of motion and normal capillary refill, left forearm with 4 cm laceration which involves muscle layer. Full range of motion to all digits 2+ radial pulses bilateral, Neuroogic: alert and oriented 3, CN II-XII intact, able to ambulate with steady gait Skin: warm dry and intact with normal color Limitations: no limitations Course Vital Signs 10/16/22 10/16/22 14:39 16:45 Temperature 98.0 F 97.9 F Pulse Rate 75 81 Respiratory 20 16 Rate Blood Pressure 128/70 138/79 O2 Sat by Pulse 97 99 Oximetry Procedures - Laceration Laceration #1 Consent Obtained: verbal consent Indication: laceration Site: other (Left forearm) Size (cm): 4 Description: linear Depth: simple, single layer, involves muscle layer Anesthetic Used: lidocaine 1% Anesthesia Technique: local infiltration Amount (mls): 10 Pre-repair: wound explored, irrigated extensively Type of Sutures: vicryl Size of Sutures: 5-0 Number of Sutures: 9 Technique: simple, interrupted Complications: pain, bleeding, nerve injury, allergic reaction Patient Tolerated Procedure: well, no complications Additional Comments: Distal NBI remains intact status post suture placement Medical Decision Making - Medical Decision Making Was pt. sent in by a medical professional or institution (, PA, HEALTH SERVICES RN, urgent care, hospital, or snf...) When possible be specific @ -[No] Did you speak to anyone other than the patient for history (EMS, parent, family, police, friend...)? What history was obtained from this source @ -[No] Did you review nursing and triage notes (agree or disagree)? Why? @ -[I reviewed and agree with nursing and triage notes] Were old charts reviewed (outside hosp., previous admission, EMS record, old EKG, old radiological studies, urgent care reports/EKG's, snf records)? Report findings @ -[No old charts were reviewed] Differential Diagnosis (chest pain, altered mental status, abdominal pain women, abdominal pain men, vaginal bleeding, weakness, fever, dyspnea, syncope, headache, dizziness, GI bleed, back pain, seizure, CVA, palpatations, mental health, musculoskeletal)? @ -[not applicable] EKG interpreted by me (3pts min.). @ -[As above] X-rays interpreted by me (1pt min.). @ - XR negative for evidence of fracture or dislocation CT interpreted by me (1pt min.). @ -[None done] U/S interpreted by me (1pt. min.). @ -[None done] What testing was considered but not performed or refused? (CT, X-rays, U/S, labs)? Why? @ -[None] What meds were considered but not given or refused? Why? @ -[None] Did you discuss the management of the patient with other professionals (professionals i.e. , PA, HEALTH SERVICES RN, lab, RT, psych nurse, social service worker, trimmer helper, teacher, event security officer, mattress spring encaser)? Give summary @ -[No] Was smoking cessation discussed for >3mins.? @ -[No] Was critical care preformed (if so, how long)? @ -[No] Were there social determinants of health that impacted care today? How? (Homelessness, low income, unemployed, alcoholism, drug addiction, transportation, low edu. Level, literacy, decrease access to med. care, [place] [facility], rehab)? @ -[No] Was there de-escalation of care discussed even if they declined (Discuss DNR or withdrawal of care, Hospice)? DNR status @ -[No] What co-morbidities impacted this encounter? (DM, HTN, Smoking, COPD, CAD, Cancer, CVA, ARF, Chemo, Hep., AIDS, mental health diagnosis, sleep apnea, morbid obesity)? @ -[None] Was patient admitted / discharged? Hospital course, mention meds given and route, prescriptions, significant lab abnormalities, going to OR and other pertinent info. @ -i discharged. This is a 41-year-old male who presents the emergency department with a chief complaint of left forearm laceration. Patient had a thorough history and physical E. Physical exam reveals a 4 cm laceration to the left flank pain. No tendon involvement. Patient had 9 sutures placed in the emergency department for which she tolerated well. Distal neurovascularly intact post placement. Patient had x-rays which were negative. I discussed the results in detail patient verbalized understanding and all questions were addressed. Return precautions were discussed at length. Patient discharged in stable condition. Case discussed with Dr. Self [facility] who agrees with plan of care Undiagnosed new problem with uncertain prognosis? @ -[No] Drug Therapy requiring intensive monitoring for toxicity (Heparin, Nitro, Insulin, Cardizem)? @ -[No] Were any procedures done? @ -[No] Diagnosis/symptom? @ -Left forearm laceration Acute, or Chronic, or Acute on Chronic? @ -Acute Uncomplicated (without systemic symptoms) or Complicated (systemic symptoms)? @ -Uncomplicated Side effects of treatment? @ -[No] Exacerbation, Progression, or Severe Exacerbation? @ -[No] Poses a threat to life or bodily function? How? (Chest pain, [place], [place], pneumonia, PE, COPD, DKA, ARF, appy, cholecystitis, CVA, Diverticulitis, Homicidal, [place] icidal, threat to staff... and all critical care pts) @ -low likelihood Disposition Clinical Impression: Forearm laceration Disposition: HOME SELF-CARE Condition: Stable Additional Instructions: Please follow-up with orthopedic group tomorrow or early next week Prescriptions: HYDROcodone/APAP 10-325MG [[place]ul[place] 10-325] 1 tab PO Q6H PRN #15 tab PRN Reason: pain Is patient prescribed a controlled substance at d/c from ED?: Yes When asked, does pt state using other controlled substances?: No If prescribed controlled substance>3 days was MAPS reviewed?: Prescribed <3 Days If opioid is for acute pain is fill amount 7 days or less?: Yes If Rx opioid, was Start Talking consent form obtained?: No Referrals: Merlin Murillo MD [Primary Care Provider] - 1-2 days Lesley Hernandes DO [Doctor of Osteopathic Medicine] - 1-2 days Time of Disposition: 16:37
[2022-10-16 16:47] VITALS: BP 138/79; PULSE 81; RESP 16; TEMP 97.9
== END 2022-10-16 16:52 | disposition home or self-care (01) ==
LOC: EC 14:14
DX: S51.812A Laceration without foreign body of left forearm, initial encounter (principal); Z87.891 Personal history of nicotine dependence; W22.8XXA Striking against or struck by other objects, initial encounter; Y99.0 Civilian activity done for income or pay
CPT/HCPCS: 73090; 99283; 96372; 12002; J2001; J1885